=== PATIENT | female | born 2000 | race Caucasian/White ===

== ENCOUNTER 2020-08-13 12:09 | Emergency (ER) | payer MEDICAID, SELFPAY ==
[2020-08-13 12:10] VITALS: BP 121/79; PULSE 68; RESP 19; TEMP 36.6; O2SAT 99; BMI 34.9
--- NOTE | 2020-08-13 12:58 | [facility].EDUTC ---
[facility] [place] Disposition Clinical Impression: Exposure to COVID-19 virus Disposition: Home, Self-Care Condition on Discharge: Good Instructions: DI for COVID-19 (Suspected or Confirmed ), Coronavirus Disease 2019, Preventing the Spread of Coronavirus Discharge Instructions Additional Instructions: *Monitor Temp, Over the counter Motrin or Tylenol as directed/as needed Tylenol every 4 hours and Motrin every 6 hours (as long as your family doctor has told you that you can take it) for fever or pain. and straight to ER if unable to lower temp less than 101.0 after medication given Follow up IMMEDIATELY for new or worsening symptoms or no Noticeable improvement over the next 48-72 hours. 911 for difficulty breathing or swallowing You were tested for today for COVID19 your test result should be back in the next 24-48 hours, you may call to the [facility] to see if your test results are back in the next 48 hours [phone] [facility] hours are 9am-9pm You was given a handout with instructions for Self Quarantine and Self isolation for while you wait on test results and what to do if they are positive If you are positive the Health Dept will be contacting you also Referrals: PCP,No [Primary Care Provider] - As needed Forms: Work/School Release Time of Disposition: 13:04 Medical Decision Making - Ernie Inquiry Pt receiving controlled substance: No Ernie was queried for this patient: No Vital Signs: 08/13/20 12:10 Temperature 97.8 F Temperature Source Oral Pulse Rate [Left Radial] 68 Respiratory Rate 19 Blood Pressure [Right Arm] 121/79 Blood Pressure Mean [Right Arm] 93 Blood Pressure Source [Right Arm] Automatic Cuff Blood Pressure Position [Right Arm] Sitting 02 Sat by Pulse Oximetry 99 Oxygen Delivery Method Room Air Orders (Tests/Meds): ORDERS Category Date Time Status Covid-19 Nasal PCR Sendout [facility] Stat Lab 08/13/20 12:20 Ordered [facility] [place] HPI - General Stated complaint: covid exposure,headache Time Seen by Provider: 08/13/20 12:59 Mode of Arrival: Ambulatory Source of Information: Patient Limitations: No Limitations Description of Symptoms (Recalled from Triage Doc. by RN): exposed to roomate with covid and had a jones for 2 days HEENT Symptoms (Recalled from RN notes): Yes Resp Symptoms (Recalled from RN notes): No Skin Symptoms (Recalled from RN notes): No MS Symptoms (Recalled from RN notes): No Functional Status (Recalled from RN notes): wnl - History of Present Illness Provider Complaint: Patient state that she is around her room mate that tested positive for COVID States that she has been having a headache and was worried that she may have COVID and wanted to get tested - Worker's Comp Is this a Worker's Comp case?: No [facility] History - Hepatitis A Screen Drug use history?: No High risk sexual behaviors?: No History of sexually transmitted infection?: No Currently employed?: No Childcare worker?: No Do you have indoor plumbing?: Yes Do you have electricity?: Yes Attestation statement:: This patient has been screened for Hepatitis A risk factors. I have reviewed the patient's past medical history: Yes ROS Obtained: Yes All systems reviewed & no additional complaints, Yes Systems reviewed as appropriate & no additional complaints - Constitutional Constitutional: Reports system reviewed and no additional complaints, except as docu, Reports headache(s) - ENT Ears, Nose, Mouth, and Throat: Reports system reviewed and no additional complaints, except as docu, Denies sinus pain, Denies sinus pressure, Denies sore throat - Cardiovascular Cardiovascular: Reports system reviewed and no additional complaints, except as docu - Respiratory Respiratory: Reports system reviewed and no additional complaints, except as docu Physical Exam - General General appearance: alert, in no apparent distress - ENT ENT exam: Present: normal exam, normal oropharynx, mucous membranes moist, TM's normal bilaterally, sandra
[2020-08-13 13:06] VITALS: BP 121/79; PULSE 68; RESP 19; TEMP 36.6; O2SAT 99
[2020-08-14 08:06] LABS: Covid-19 Nasal PCR Sendout P&C Negative
== END 2020-08-13 13:10 | disposition home or self-care (01) ==
PROVIDERS: Emergency Provider Nurse Practitioner; PCP Nurse Practitioner Family
DX: Z20.822 Contact with and (suspected) exposure to COVID-19 (principal); R51.9 Headache, unspecified
CPT/HCPCS: 99202; G0463; U0004